=== PATIENT | female | born 1980 | race Caucasian/White ===

== ENCOUNTER → 2017-03-21 | Outpatient (CLI) | payer BC ==
[~2017-03-21] MED LIST: ACULAR10 ML OD; ERYTHROMYCIN O3.5 G1 OD; SUPRENZA ODT37.5 MG PO; TYLENOL #3 PO
--- NOTE | ~2017-03-21 | US5 ---
[facility] A Service of [facility] & [facility] RADIOLOGY TEXT RESULTS PATIENT: DAVID SINGH LOCATION: [facility] : [birth year] UNIT #: [id number] AGE: [address]: Henry Pink MD SEX: F ORDER DR: [id number] [address] [address] [id number] O MR#: [id number] Acc #: [id number] NAME: DAVID SINGH : 1980 SEX: F STUDY DATE/TIME: 03/21/2017 9:04 UNIT: [facility] ROOM: STUDY DESCRIPTION: US Abdominal Complete Attending Physician: Henry Pink M.D. Referring Physician: Henry Pink M.D. Ordering Physician: Henry Pink M.D. Primary Care Physician: Henry Pink M.D. MEDICAL IMAGING REPORT This report is preliminary unless electronic signature is present. EXAMINATION Complete abdominal ultrasound. DATE 03/21/2017 HISTORY Abnormal elevated liver function test for 1 month. Family history of liver disease. COMPARISON HIDA scan, 08/11/2007, abdominal ultrasound, 07/31/2007. FINDINGS The pancreas is completely obscured by bowel gas. The liver echotexture appears mildly coarsened which is nonspecific but may represent changes of mild hepatic steatosis. No focal liver lesion is identified and the liver size is within normal limits, 16.5 cm in the long axis. Gallbladder is free of shadowing stone or sludge or wall thickening. The right kidney measures 10.1 cm and the left kidney measures 11.8 cm in length. No right renal cortical lesion, shadowing stone or hydronephrosis is identified. The cyst within the left lower renal pole measures up to 5.4 cm, and a second cortical base cyst at the lower pole measures about 12 mm. The spleen size is normal, 13.3 cm. No abdominal aortic aneurysm is seen. There is color flow within the abdominal aorta and within the IVC. There is questionable trace pericholecystic fluid. Not mentioned above, the gallbladder wall thickness on the transverse view is just at upper limits normal, 4 mm. [facility]. [facility] A Service of [facility] & [facility] RADIOLOGY TEXT RESULTS PATIENT: DAVID SINGH [id number] [birth year] UNIT #: [id number] AGE: [address]: Henry Pink MD SEX: F ORDER DR: IMPRESSION 1. Suspected trace pericholecystic fluid. Gallbladder wall thickness is just at upper limits normal. Findings are nonspecific. Cholecystitis cannot be completely excluded based upon imaging findings. Alternately, the trace pericholecystic fluid could be related to liver disease. HIDA scan may prove helpful for further evaluation if deemed clinically appropriate. 2. Mildly and diffusely echogenic liver may represent changes of hepatic steatosis. No focal liver lesion. 3. Left renal cysts. Dictated by... Marci Ramsay M.D. THIS IS AN ELECTRONICALLY VERIFIED REPORT Marci Ramsay M.D. at 03/24/2017 1:22 PM PEDRITO/savita TD: 03/21/2017 16:12 JOB #: [id number] MEDICAL IMAGING REPORT Page 1 of 1
== END | disposition home or self-care (01) ==
LOC: SGUS 08:12
DX: R94.5 Abnormal results of liver function studies (principal); Q61.02 Congenital multiple renal cysts
CPT/HCPCS: 76700

== ENCOUNTER → 2017-04-02 | Outpatient (CLI) | payer BC ==
--- NOTE | ~2017-04-02 | NM22 ---
[facility] A Service of [facility] & [facility] RADIOLOGY TEXT RESULTS PATIENT: DAVID SINGH LOCATION: [facility] : 80 UNIT #: [id number] AGE: [address]: Henry Pink MD SEX: F ORDER DR: [id number] [facility] [address] [facility]. [place], [place] [address] [id number] O MR#: [id number] Acc #: [id number] NAME: DAVID SINGH. : 1980 SEX: F STUDY DATE/TIME: 04/02/2017 11:55 UNIT: [facility] ROOM: STUDY DESCRIPTION: [place] Hepatobiliary W GB Pharm Attending Physician: Henry Pink M.D. Referring Physician: Henry Pink M.D. Ordering Physician: Henry Pink M.D. Primary Care Physician: Henry Pink M.D. MEDICAL IMAGING REPORT This report is preliminary unless electronic signature is present EXAM HIDA scan with Kinevac CCK 04/02/2017 HISTORY Abnormally elevated liver enzymes for 2 weeks. Right upper quadrant abdominal pain and abdominal bloating, acid reflux, nausea and vomiting for 2 weeks. FINDINGS The patient received an intravenous injection of 6 mCi of technetium 99m tagged Choletec for hepatobiliary imaging. 1 hour following the injection of the radiopharmaceutical the patient received intravenous injection 1.7 mcg of Kinevac. There is homogeneous distribution of the radiotracer throughout the liver. Gallbladder activity was seen by 30 minutes postinjection of the radiopharmaceutical. Following Kinevac injection the gallbladder ejection fraction was 92.4% (normal is greater than 30%). IMPRESSION Normal HIDA scan with gallbladder ejection fraction of 92.4%. Dictated by... Jesus Alberto Woods M.D. THIS IS AN ELECTRONICALLY VERIFIED REPORT Jesus Alberto Woods M.D. at 04/02/2017 5:05 PM [place]/jim TD: 04/02/2017 15:37 JOB #: [id number] MEDICAL IMAGING REPORT Page 1 of 1 COPY
== END | disposition home or self-care (01) ==
LOC: CNUC 11:28
DX: K81.9 Cholecystitis, unspecified (principal)
CPT/HCPCS: 78227; A9537; J2805